=== PATIENT | male | born 1945 | race Two or more races ===

== ENCOUNTER 2024-12-28 21:48 | Emergency (ER) | payer MEDICARE ==
[~2024-12-28] VITALS: Ht 177.8 cm; Wt 74.8 kg
[2024-12-28] MEDS ORDERED: ROSU40TA PO (22:17)
[2024-12-28] MEDS ORDERED: ASPI81TA31 PO (22:17)
[2024-12-28] MEDS ORDERED: CLOP75TA15 PO (22:17)
[2024-12-28] MEDS ORDERED: NEOMY/BACITRA/POLYMYXIN B OINT UD PACKET TP ONE (23:19)
[2024-12-28] MEDS: NEOMY/BACITRA/POLYMYXIN B OINT UD PACKET TP ONE (23:19)
[2024-12-28] MEDS ORDERED: TDAP DIPH,PERTUSS,TET VAC/PF 0.5 ML DISP.SYRIN IM ONE (23:19)
[2024-12-28] MEDS: TDAP DIPH,PERTUSS,TET VAC/PF 0.5 ML DISP.SYRIN IM ONE (23:20)
[2024-12-29 01:08] VITALS: BP 150/70; O2SAT 98
== END 2024-12-29 01:09 | disposition left against medical advice (07) ==
LOC: ER 21:55
DX: S02.2XXA Fracture of nasal bones, initial encounter for closed fracture (principal); S00.83XA Contusion of other part of head, initial encounter; S00.81XA Abrasion of other part of head, initial encounter; Z79.02 Long term (current) use of antithrombotics/antiplatelets; Z79.82 Long term (current) use of aspirin; Z79.899 Other long term (current) drug therapy; Z95.5 Presence of coronary angioplasty implant and graft; W01.0XXA Fall on same level from slipping, tripping and stumbling without subsequent striking against object, initial encounter; Y93.89 Activity, other specified; Y92.481 Parking lot as the place of occurrence of the external cause; Y99.8 Other external cause status
CPT/HCPCS: 70450; 70486; 90715; A4606; A4663